=== PATIENT | male | born 1965 | race Asian ===

== ENCOUNTER 2016-05-11 18:27 | Emergency (ER) | payer OTHER ==
[~2016-05-11] VITALS: Ht 172.7 cm; Wt 81.6 kg
[2016-05-11] MEDS ORDERED: TdaP Vaccine 0.5ml Syr IM ONE (18:30)
[2016-05-11] MEDS ORDERED: Hydrogen Peroxide 120ml Bottle TOPIC ONE (18:45)
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
[2016-05-11 19:05] VITALS: BP 128/82
[2016-05-11] MEDS ORDERED: Lidocaine 1% 10mg/ml/Epi 0.005mg/ml 30ml vial INJ ONE (19:15)
[2016-05-11] MEDS ORDERED: Lidocaine 2% MPF 5ml Vial INJ ONE (19:16)
[2016-05-11 23:13] VITALS: BP 132/62
--- NOTE | 2016-05-12 08:46 | Diagnostic Imaging Report ---
Indication: PAIN Technique: Continuous helical CT scanning of the head was performed without intravenous contrast material. Axial and coronal 5 mm sections were generated. Radiation dose was minimized using automated exposure control Dose: Total Dose Length Product - DLP [address] Dose Index - CTDIvol(s) 70.38 mGy. Comparison: None Findings: The ventricular system is normal in size and configuration. There is no shift of midline structures. No abnormal extra-axial fluid collections are noted. There is no evidence of intracerebral bleeding. No other abnormal high or low density areas are noted within the brain. There is left frontal supraorbital soft tissue swelling. There is sinus opacification. Impression: Normal CT scan of the head without contrast material. Sinus disease Left supraorbital scalp soft tissue swelling This agrees with the preliminary interpretation provided overnight by Dr. Corea The CT scanner at [facility] is accredited by the [employer] and the scans are performed using protocols designed to limit radiation exposure to as low as reasonably achievable to attain images of sufficient resolution adequate for diagnostic evaluation.
--- NOTE | 2016-05-12 08:50 | Diagnostic Imaging Report ---
Indication: PAIN Technique: No IV contrast, per, protocol. Spiral acquisitions obtained through the facial bones. Multiplanar reconstructions were generated. Total dose length product 567 mGycm. CTDIvol(s) 28 mGy. Radiation dose was minimized using automated exposure control Comparison: None Findings: No acute fractures. No worrisome sinus air-fluid levels. There is bilateral ethmoid, frontal, sphenoid, and minimal left maxillary sinus mucosal disease. The optic globes are intact as are the retroseptal orbits. There is left supraorbital scalp soft tissue swelling. The included intracranial contents are unremarkable. The dentition is intact. The facial soft tissues are unremarkable. Impression: No acute bony trauma Left supraorbital soft tissue swelling Sinus disease This agrees with the preliminary interpretation provided overnight by Dr. Corea The CT scanner at [facility] is accredited by the [employer] and the scans are performed using protocols designed to limit radiation exposure to as low as reasonably achievable to attain images of sufficient resolution adequate for diagnostic evaluation.
== END 2016-05-11 23:10 | disposition home or self-care (01) ==
LOC: EDBD 18:27 → EMR 19:37
DX: S09.90XA Unspecified injury of head, initial encounter (principal); Z23 Encounter for immunization; S01.112A Laceration without foreign body of left eyelid and periocular area, initial encounter; Y09 Assault by unspecified means; Y92.9 Unspecified place or not applicable; Y99.8 Other external cause status
CPT/HCPCS: 70450; 70486; 90471; 90715